=== PATIENT | male | born 1995 | race Caucasian/White ===

== ENCOUNTER → 2020-05-19 14:19 | Outpatient (CLI) | payer OTHER, SELFPAY ==
[2020-05-19 13:52] VITALS: BMI 24.4
[2020-05-19 18:22] LABS: Chlamydia Trachomatis by PCR Negative (Negative); Neisserai gonorrhoeae by PCR Negative (Negative); Probe Check PASS; Sample Adequacy Control PASS; Specimen Processing Control PASS
[2020-05-19 19:00] LABS: HIV - WCH Non-Reactive (Nonreactive)
[2020-05-23 08:08] LABS: HSV 1 By PCR Negative (Negative)
[2020-05-23 08:44] LABS: HSV 2 By PCR Negative (Negative)
== END ==
PROVIDERS: PCP Family Medicine; Referring Provider Physician Assistant Surgical; Visit Provider Physician Assistant Surgical
DX: Z11.3 Encounter for screening for infections with a predominantly sexual mode of transmission (principal)
CPT/HCPCS: 36415; 86703; 87491; 87529; 87591